=== PATIENT | male | born 1940 | race Caucasian/White ===

== ENCOUNTER 2017-07-06 07:44 | Outpatient (CLI) | payer MEDICARE ==
[2017-07-06 09:20] LABS: Bilirubin Negative (Negative); Blood, Urine Moderate (Negative); Clarity Clear (Clear); Glucose, Urine (Dipstick) Negative (Negative); Leukocyte Negative (Negative); Nitrite Negative (Negative); Protein, Urine (Dipstick) Negative (Neg-Trace); Specific Gravity, Urine 1.015 (1.005-1.030); Urobilinogen 0.2 mg/dL (0.2-1.0)
[2017-07-06 09:54] LABS: Bacteria/HPF Rare-Few HPF (None Seen); Squamous Epithelial 0-3 HPF (0-3); WBC/HPF 0-3 HPF (0-3)
== END 2017-07-06 07:45 | disposition home or self-care (01) ==
LOC: NAV LABSP 07:44
PROVIDERS: ATTEND Internal Medicine
DX: R41.82 Altered mental status, unspecified (principal); R30.0 Dysuria
CPT/HCPCS: 81001; 87086

== ENCOUNTER 2017-07-27 19:04 | Emergency (ER) | payer MEDICARE ==
[2017-07-27 20:01] LABS: Bilirubin Negative (Negative); Blood, Urine Negative (Negative); Clarity Clear (Clear); Glucose, Urine (Dipstick) Negative (Negative); Leukocyte Negative (Negative); Nitrite Negative (Negative); Protein, Urine (Dipstick) Negative (Neg-Trace)
[2017-07-27 20:03] LABS: #Basophils 0.1 thou/uL (0.0-0.2); #Eosinphils 0.1 thou/uL (0.0-0.7); #Lymphocytes 1.1 thou/uL (1.20-3.40); #Monocytes 0.9 thou/uL (0.11-0.59); #Neutrophils 5.9 thou/uL (1.40-6.50); %Basophils 0.8 % (0.0-1.0); %Eosinophils 1.7 % (0.0-10.0); %Lymphocytes 13.5 % (21.0-51.0); Hemoglobin 10.2 g/dL (14.0-18.0); Mean Corpuscular HGB CONC 30.5 g/dL (32.0-36.0); Mean Platelet Volume 8.1 fL (7.4-10.4); Platelet Count 242 thou/uL (130-400); RBC Distribution Width 13.3 % (11.5-14.5); White Blood Cell (WBC) Count 8.1 thou/uL (4.8-10.8)
[2017-07-27 20:05] LABS: INR-International Normal Ratio 1.1; Prothrombin Time 13.8 SEC (12.0-14.7)
[2017-07-27 20:06] LABS: PTT 30.3 SEC (22.9-36.1)
[2017-07-27 20:11] LABS: ALT (SGPT) 16 U/L (8-55); AST (SGOT) 16 U/L (5-34); Albumin 3.4 g/dL (3.4-4.8); Alkaline Phosphatase 112 U/L (40-150); Anion Gap 11 mmol/L (10-20); BUN (Urea Nitrogen) 18 mg/dL (8.4-25.7); Bilirubin, Total 0.3 mg/dL (0.2-1.2); Calc. Creatinine Clearance 0 mL/min (70-130); Calcium 9.1 mg/dL (7.8-10.44); Carbon Dioxide 30 mmol/L (23-31); Chloride 108 mmol/L (98-107); Estimated GFR-MDRD Greater than 90; Globulin 2.4 g/dL (2.4-3.5); Glucose 72 mg/dL (83-110); Potassium 3.6 mmol/L (3.5-5.1); Protein, Total 5.8 g/dL (5.8-8.1); Sodium 145 mmol/L (136-145)
[2017-07-27 20:13] LABS: CKMB 1.5 ng/mL (0-6.6); Troponin I Less than 0.010 ng/mL (< 0.028)
[2017-07-27 20:14] LABS: CRP (Inflammatory) 1.28 mg/dL (= or < 0.5)
[2017-07-27] MEDS ORDERED: Haloperidol Lactate 5 MG/ML VIAL ONE (21:33)
--- NOTE | 2017-07-27 22:31 | RAD ---
PORTABLE CHEST ONE VIEW: 07/27/17 at 8:10 p.m. HISTORY: Abdominal pain. FINDINGS: Comparison made with the exam of 06/05/17. There are changes of median sternotomy. The heart size is enlarged. No confluent areas of consolidat ion, pneumothorax, nikki pulmonary edema or pleural effusions are seen. There is continued elevation of the right hemidiaphragm. IMPRESSION: No acute process. POS: [facility]
--- NOTE | 2017-07-28 07:39 | CT ---
CT ABDOMEN AND PELVIS WITHOUT CONTRAST 07/27/17 HISTORY: Abdominal pain. FINDINGS: There are dependent changes of the lung bases, right greater than left. Absence of oral and IV contrast reduces the sensitivity of the exam, particularly for evaluation of solid organs and bowel. Questionable tiny calculi is seen in the gallbladder. No free air or free fluid is seen in the abdom en or pelvis. No calculi is seen in the kidneys, ureters, or the urinary bladder. No hydroureteronep hrosis noted on either side. There is a 3 cm cortical cyst in the left kidney. There are vascular calcifications without evidence of aneurysmal dilatation of the abdominal aorta. There is fecal material in the colon and rectum. The small bowel loops are not abnormally dilated. There are bilateral fat containing inguinal hernia , left larger than right. There are degenerative changes in the spine. There is compression of L1 an d L2 vertebral bodies. No definite abnormally distended fluid filled appendix is seen. IMPRESSION: 1. No CT evidence of urinary tract calculi or obstruction. 2. Left renal cyst. 3. No evidence of bowel obstruction. 4. Constipation. 5. Probable cholelithiasis. POS: [facility]
== END 2017-07-27 23:22 ==
LOC: NAV ERS 19:04
DX: T16.2XXA Foreign body in left ear, initial encounter (principal); I11.0 Hypertensive heart disease with heart failure; I50.9 Heart failure, unspecified; K59.00 Constipation, unspecified; F91.8 Other conduct disorders; G30.9 Alzheimer's disease, unspecified; F02.80 Dementia in other diseases classified elsewhere, unspecified severity, without behavioral disturbance, psychotic disturbance, mood disturbance, and anxiety; E78.5 Hyperlipidemia, unspecified; Z79.82 Long term (current) use of aspirin; Z79.899 Other long term (current) drug therapy
CPT/HCPCS: 36415; 69200; 71010; 74176; 80053; 81003; 82553; 83605; 83690; 83735; 83880; 84484; 85025; 85610; 85730; 86140; 96372; J1630

== ENCOUNTER 2017-08-15 09:46 | Outpatient (CLI) | payer MEDICARE ==
[2017-08-15 10:34] LABS: #Basophils 0.1 thou/uL (0.0-0.2); #Eosinphils 0.1 thou/uL (0.0-0.7); #Lymphocytes 1.3 thou/uL (1.20-3.40); #Monocytes 0.6 thou/uL (0.11-0.59); #Neutrophils 5.3 thou/uL (1.40-6.50); %Lymphocytes 17.2 % (21.0-51.0); %Monocytes 7.6 % (0.0-10.0); %Neutrophils 72.3 % (42.0-75.0); Hemoglobin 10.5 g/dL (14.0-18.0); Mean Corpuscular HGB CONC 30.6 g/dL (32.0-36.0); Mean Corpuscular Hemoglobin 29.5 pg (27.0-31.0); Mean Corpuscular Volume 96.4 fl (80.0-94.0); Mean Platelet Volume 6.9 fL (7.4-10.4); Platelet Count 212 thou/uL (130-400); RBC Distribution Width 13.6 % (11.5-14.5); Red Blood Cell (RBC) Count 3.55 mill/uL (4.70-6.10); White Blood Cell (WBC) Count 7.3 thou/uL (4.8-10.8)
[2017-08-15 10:38] LABS: Bilirubin Negative (Negative); Blood, Urine Negative (Negative); Clarity Cloudy (Clear); Glucose, Urine (Dipstick) Negative (Negative); Leukocyte Negative (Negative); Nitrite Negative (Negative); Protein, Urine (Dipstick) Negative (Neg-Trace)
[2017-08-15 10:48] LABS: ALT (SGPT) 12 U/L (8-55); AST (SGOT) 14 U/L (5-34); Albumin 2.8 g/dL (3.4-4.8); Alkaline Phosphatase 108 U/L (40-150); Anion Gap 14 mmol/L (10-20); BUN (Urea Nitrogen) 9 mg/dL (8.4-25.7); Bilirubin, Total 0.4 mg/dL (0.2-1.2); Calc. Creatinine Clearance 0 mL/min (70-130); Calcium 8.6 mg/dL (7.8-10.44); Carbon Dioxide 28 mmol/L (23-31); Chloride 105 mmol/L (98-107); Estimated GFR-MDRD Greater than 90; Globulin 2.5 g/dL (2.4-3.5); Glucose 81 mg/dL (83-110); Potassium 3.6 mmol/L (3.5-5.1); Protein, Total 5.3 g/dL (5.8-8.1); Sodium 143 mmol/L (136-145)
[2017-08-15 10:50] LABS: Bacteria/HPF 2+ HPF (None Seen); RBC/HPF None Seen HPF (0-3); Squamous Epithelial 0-3 HPF (0-3); WBC/HPF None Seen HPF (0-3)
[2017-08-15 10:51] LABS: Crystals/HPF 2+ AMORPH URATES HPF (Negative)
== END 2017-08-15 09:47 | disposition home or self-care (01) ==
LOC: NAV NNR 09:46
PROVIDERS: ATTEND Internal Medicine
DX: Z51.81 Encounter for therapeutic drug level monitoring (principal); Z79.899 Other long term (current) drug therapy
CPT/HCPCS: 36415; 80053; 81001; 82140; 85025